=== PATIENT | female | born 1980 | race Caucasian/White ===

== ENCOUNTER 2019-07-22 20:58 | Emergency (ER) | payer OTHER ==
[~2019-07-22] VITALS: Ht 167.6 cm; Wt 79.0 kg
[2019-07-22] MEDS ORDERED: METFORMIN500 MG PO (21:11)
[2019-07-22] MEDS ORDERED: CELEXA40 M1 PO (21:12)
[2019-07-22] MEDS ORDERED: HYDROXYZINE HCL25 M1 PO (21:12)
[2019-07-22 21:44] LABS: URINE BILIRUBIN - DIPSTICK NEGATIVE (NEGATIVE); URINE BLOOD DIPSTICK NEGATIVE (NEGATIVE); URINE COLOR YELLOW; URINE GLUCOSE - DIPSTICK NEGATIVE (NEGATIVE); URINE KETONE NEGATIVE (NEGATIVE); URINE LEUK ESTERASE TRACE (NEGATIVE); URINE NITRITE - DIPSTICK POSITIVE (Negative); URINE PH 5.5 (4.5-8.0); URINE PROTEIN - DIPSTICK NEGATIVE (NEG-TRACE); URINE SPECIFIC GRAVITY >=1.030; URINE UROBILINOGEN - DIPSTICK 0.2 E.U./dL (0.2)
[2019-07-22 21:47] LABS: COCAINE NEGATIVE (NEGATIVE); METHADONE NEGATIVE (NEGATIVE); TETRAHYDROCANNABIONOL NEGATIVE (NEGATIVE); TRICYLIC ANTIDEPRESSANTS NEGATIVE (NEGATIVE)
[2019-07-22 21:48] LABS: BARBITURATES NEGATIVE (NEGATIVE); OXCYCODONE NEGATIVE (NEGATIVE)
[2019-07-22 21:51] LABS: URINE BACTERIA MODERATE hpf; URINE RBC 0-2 RBC/hpf (0-5); URINE SQUAMOUS EPITHELIAL CELL FEW EPI/hpf (0-FEW)
[2019-07-22] MEDS ORDERED: SOMA350 MG PO (22:59)
[2019-07-22 23:00] VITALS: BP 125/71
[2019-07-22] MEDS ORDERED: KEFLEX500 MG PO (23:00)
[2019-07-22] MEDS ORDERED: ZOFRAN4 MG/TAB PO (23:17)
== END 2019-07-22 23:20 | disposition home or self-care (01) ==
LOC: ED 20:58
DX: S39.011A Strain of muscle, fascia and tendon of abdomen, initial encounter (principal); W01.0XXA Fall on same level from slipping, tripping and stumbling without subsequent striking against object, initial encounter; Y92.019 Unspecified place in single-family (private) house as the place of occurrence of the external cause; N39.0 Urinary tract infection, site not specified; B96.20 Unspecified Escherichia coli [E. coli] as the cause of diseases classified elsewhere